=== PATIENT | male | born 1995 | race Caucasian/White ===

== ENCOUNTER 2019-07-20 15:40 | Emergency (ER) | payer SELFPAY ==
--- NOTE | 2019-07-20 16:22 | RAD ---
EXAM DESCRIPTION: Elbow,Left 2 Views (accession [id number]), Humerus,Left (accession [id number]) CLINICAL HISTORY: run over by bull COMPARISON: None FINDINGS: Three x-ray views of the left elbow, and two views of the left humerus were submitted. There is an acute mildly displaced oblique fracture at the distal humeral diaphysis.. Bone mineralization is within normal limits. There is no radiopaque foreign body material. Lateral view of the elbow is limited due to positioning. IMPRESSION: Acute oblique fracture of the distal humeral diaphysis. Limited visualization of the elbow. Electronically signed by: Lawson Hensley MD 07/20/2019 4:21 PM CDT
--- NOTE | 2019-07-20 16:23 | RAD ---
EXAM DESCRIPTION: Elbow,Left 2 Views (accession [id number]), Humerus,Left (accession [id number]) CLINICAL HISTORY: run over by bull COMPARISON: None FINDINGS: Three x-ray views of the left elbow, and two views of the left humerus were submitted. There is an acute mildly displaced oblique fracture at the distal humeral diaphysis.. Bone mineralization is within normal limits. There is no radiopaque foreign body material. Lateral view of the elbow is limited due to positioning. IMPRESSION: Acute oblique fracture of the distal humeral diaphysis. Limited visualization of the elbow. Electronically signed by: Lawson Hensley MD 07/20/2019 4:21 PM CDT
[2019-07-20] MEDS ORDERED: HYDROcodone 10MG/APAP 325MG 1 EA TAB PO ONE (17:39)
--- NOTE | 2019-07-20 17:46 | ED.PDOC ---
History of Present Illness - General Chief Complaint: Trauma Stated Complaint: trauma Time Seen by Provider: 07/20/19 15:48 Source: patient Exam Limitations: no limitations - History of Present Illness Initial Comments: The patient is a 24-year-old male presented to emergency room after having been run over by a bull. He is a straw boss. The patient has pain in his mid left humerus. No pain to the shoulder or the elbow. No pain in the hand. He is neurovascularly intact distally. No laceration. There is palpable movement within the humerus. Timing/Duration: momentarily Severity: severe Improving Factors: immobilization Worsening Factors: movement Associated Symptoms: denies symptoms Allergies/Adverse Reactions: Allergies NO KNOWN ALLERGY Allergy (Verified 07/20/19 15:52) Home Medications: Ambulatory Orders Tramadol HCl 50 mg PO Q8HR PRN #30 tab 07/20/19 Review of Systems - Review of Systems Constitutional: States: no symptoms reported EENTM: States: no symptoms reported Respiratory: States: no symptoms reported Cardiology: States: no symptoms reported Gastrointestinal/Abdominal: States: no symptoms reported Genitourinary: States: no symptoms reported Musculoskeletal: States: see HPI Skin: States: no symptoms reported Neurological: States: no symptoms reported Endocrine: States: no symptoms reported All other Systems: No Change from Baseline Past Medical History (General) - Patient Medical History Hx Stroke: No Hx Congestive Heart Failure: No Hx Diabetes: No - Vaccination History Hx Tetanus, Diphtheria Vaccination: Yes Hx Influenza Vaccination: Yes - Social History Hx Tobacco Use: Yes Hx Chewing Tobacco Use: Yes Family Medical History - Family History Father Family History: Unknown Living Status: Unknown Physical Exam - Physical Exam General Appearance: Alert, Obvious distress Eye Exam: bilateral normal Ears, Nose, Throat: hearing grossly normal, normal pharynx Neck: full range of motion, supple Respiratory: lungs clear, normal breath sounds, no respiratory distress, no accessory muscle use Cardiovascular/Chest: normal peripheral pulses, regular rate, rhythm, no edema Peripheral Pulses: radial,right: 2+, radial,left: 2+ Gastrointestinal/Abdominal: non tender, soft Rectal Exam: deferred Back Exam: no CVA tenderness, no vertebral tenderness Extremity: no pedal edema, normal capillary refill, other - See history of present illness. Neurologic: gastroenterologist II-XII nml as tested, no motor/sensory deficits, alert, normal mood/affect, oriented x 3 Skin Exam: normal color - With the exception that the patient does have cupping bruises on his back. Comments: Vital Signs - 24 hr 07/20/19 07/20/19 15:47 17:10 Temperature 98.6 F Pulse Rate [ 85 75 Right Brachial] Respiratory 20 16 Rate Blood Pressure 131/75 116/65 [Right Arm] O2 Sat by Pulse 95 99 Oximetry Progress - Progress Progress: 07/20/19 17:47 The patient is a 24-year-old male presenting after trauma which left him with a spiral fracture to the distal third of the humerus shaft on the left. There is mild displacement. The patient was placed in a coaptation splint with a sling to support the wrist. He can adjust the tension on the nikki wraps as needed. He was given a dose of hydrocodone here. This is a closed fracture and he appears to be neurovascularly intact. He will be written for tramadol for as needed use over the coming week or 2. I do want him to follow-up with his primary care doctor or orthopedics next week for a repeat evaluation to make sure that the bone is starting to heal. Additionally he can be measured at that time for a customized brace for the humerus. ER warnings are given. [id number] aware consulted - Results/Orders Results/Orders: X-ray of left humerus shows a spiral fracture to the distal third but does not appear to be going down into the elbow joint. There is some mild displacement. Departure - Departure Clinical Impression: Humerus shaft fracture Qualifiers: Encounter type: initial encounter Fracture type: closed Fracture morphology: spiral Fracture alignment: displaced Laterality: left Qualified Code(s): S42.342A - Displaced spiral fracture of shaft of humerus, left arm, initial encounter for closed fracture Disposition: Discharge to Home or Self Care Condition: Fair Departure Forms: ED Discharge - Pt. Copy, Patient Portal Self Enrollment Diet: regular diet Activity: no pushing/pulling with affected limb Prescriptions: Tramadol HCl 50 mg PO Q8HR PRN #30 tab PRN Reason: Moderate Pain Home Medications: Ambulatory Orders Tramadol HCl 50 mg PO Q8HR PRN #30 tab 07/20/19 Additional Instructions: The patient is a 24-year-old male presenting after trauma which left him with a spiral fracture to the distal third of the humerus shaft on the left. There is mild displacement. The patient was placed in a coaptation splint with a sling to support the wrist. He can adjust the tension on the nikki wraps as needed. He was given a dose of hydrocodone here. This is a closed fracture and he appears to be neurovascularly intact. He will be written for tramadol for as needed use over the coming week or 2. I do want him to follow-up with his primary care doctor or orthopedics next week for a repeat evaluation to make sure that the bone is starting to heal. Additionally he can be measured at that time for a customized brace for the humerus. ER warnings are given. Also avoid dipping in the near future to improve healing.
[2019-07-20 18:11] VITALS: BP 152/85; TEMP 97.8; O2SAT 98
== END 2019-07-20 18:13 | disposition home or self-care (01) ==
LOC: ER 15:40
DX: S42.342A Displaced spiral fracture of shaft of humerus, left arm, initial encounter for closed fracture (principal); F17.200 Nicotine dependence, unspecified, uncomplicated; W55.29XA Other contact with cow, initial encounter; Y92.9 Unspecified place or not applicable; Y99.0 Civilian activity done for income or pay